=== PATIENT | male | born 1985 | race Caucasian/White ===

== ENCOUNTER 2022-05-27 20:28 | Emergency (ER) | payer BC, OTHER ==
[~2022-05-27] VITALS: Ht 182.9 cm; Wt 83.9 kg
[2022-05-27] MEDS ORDERED: BUPIVACAINE HCL 0.25% 10ML MPF VIAL INJ ONE ×2 (21:30→23:07)
[2022-05-27] MEDS ORDERED: HYDROCODONE/APAP 10MG-325MG TAB PO ONE (22:00)
[2022-05-27] MEDS ORDERED: FENTANYL CITRATE/PF 100MCG/2 ML INJ IJ ONE (23:00)
[2022-05-27] MEDS ORDERED: FENTANYL CITRATE/PF 100MCG/2 ML INJ ONE (23:12)
[2022-05-27] MEDS ORDERED: HYDROCODON-ACE1 EA11 PO (23:16)
== END 2022-05-28 00:31 | disposition home or self-care (01) ==
LOC: ER 20:44
DX: S93.111A Dislocation of interphalangeal joint of right great toe, initial encounter (principal); W01.0XXA Fall on same level from slipping, tripping and stumbling without subsequent striking against object, initial encounter; Y93.67 Activity, basketball; Y92.89 Other specified places as the place of occurrence of the external cause
CPT/HCPCS: 28665; 73660; 99283; J3010